=== PATIENT | male | born 1965 | race Caucasian/White ===

== ENCOUNTER 2017-04-12 19:12 | Inpatient (IN) | payer MEDICARE ==
--- NOTE | ~2017-04-12 | NM69 ---
[facility] A Service of [facility] RADIOLOGY TEXT RESULTS PATIENT: JC JIMÉNEZ LOCATION: [facility] 339- : 64 UNIT #: [id number] AGE: [address]: Sapphire Cid MD SEX: M ORDER DR: [id number] [facility] [address]. [place], [place] [address] [id number] I MR#: [id number] Acc #: [id number] NAME: JC JIMÉNEZ : 1965 SEX: M STUDY DATE/TIME: 04/13/2017 9:26 UNIT: A U ROOM: [facility] STUDY DESCRIPTION: NM Pulm Vent and Perf Attending Physician: Yelitza Lopez M.D. Ordering Physician: Erlinda Sol M.D. Primary Care Physician: Dontrell Trejo M.D. MEDICAL IMAGING REPORT This report is preliminary unless electronic signature is present EXAM Ventilation-perfusion lung scan HISTORY 51-year-old male with a history of blood clots with bilateral leg and feet swelling. Shortness of air starting about a month ago. Dizziness and fatigue. Recent total reconstruction right pelvis. COMPARISON Portable chest, 04/12/[address] angiogram chest 04/12/2017. FINDINGS Ventilation-perfusion lung scan was performed utilizing eight standard projections. Perfusion agent 5 mCi technetium 99m MAA and the ventilation agent 36 mCi technetium 99m DTPA aerosol. Examination demonstrates normal ventilation-perfusion throughout all bronchopulmonary segments. No ventilation-perfusion mismatch is seen. Symmetric perfusion between the upper and lower lobes and right and left lungs. IMPRESSION Normal ventilation-perfusion lung scan. Dictated by... Andrzej Wild M.D. THIS IS AN ELECTRONICALLY VERIFIED REPORT Andrzej Wild M.D. at 04/17/2017 9:29 AM Caesar TD: 04/13/2017 13:30 [facility] A Service of [facility] RADIOLOGY TEXT RESULTS PATIENT: JC JIMÉNEZ LOCATION: [facility] 339-01 : 64 UNIT #: [id number] AGE: [address]: Sapphire Cid MD SEX: M ORDER DR: JOB #: [id number] MEDICAL IMAGING REPORT Page 1 of 1 COPY
--- NOTE | ~2017-04-12 | CR72 ---
[facility]. [facility] A Service of [facility] & [facility] RADIOLOGY TEXT RESULTS PATIENT: JC JIMÉNEZ LOCATION: [place] [address] : 64 UNIT #: [id number] AGE: [address]: Yelitza Lopez MD SEX: M ORDER DR: [id number] [facility] [address] [facility]. [place], [place] [address] [id number] E MR#: [id number] Acc #: [id number] NAME: JC JIMÉNEZ. : 1965 SEX: M STUDY DATE/TIME: 04/12/2017 19:51 UNIT: [employer] ROOM: STUDY DESCRIPTION: CR Chest Single View Portable Attending Physician: Angle Roach M.D. Ordering Physician: Angle Roach M.D. Primary Care Physician: Dontrell Trejo M.D. MEDICAL IMAGING REPORT This report is preliminary unless electronic signature is present EXAM Portable chest HISTORY Chest pain and shortness of air for 2 weeks. FINDINGS Cardiac size and pulmonary vascularity are normal. 1 cm calcified granuloma in the left superior upper lobe. No airspace infiltrates. No pleural effusions. IMPRESSION No acute findings. No active disease. Dictated by... Hiren Meneses M.D. THIS IS AN ELECTRONICALLY VERIFIED REPORT Hiren Meneses M.D. at 04/13/2017 11:24 PM DFL/psc TD: 04/12/2017 22:58 JOB #: [id number] MEDICAL IMAGING REPORT Page 1 of 1 COPY
--- NOTE | ~2017-04-12 | CO ---
Unit #: [id number] #: [id number] Patient: JC JIMÉNEZ [id number] [address] [address] [id number] I MR#: [id number] NAME: JC JIMÉNEZ. ROOM: 339 Age: 51 Sex: M Admission Date: 04/13/2017 : 1965 Attending Physician: Sapphire Cid M.D. Primary Care Physician: Dontrell Trejo M.D. Consultation Date: 04/13/2017 CONSULTATION REPORT CHIEF COMPLAINT Fever, possible sepsis, evaluate right hip for possible source. HISTORY OF PRESENT ILLNESS Mr. Jiménez is a 51-year-old gentleman who is status post a recent complex right total hip replacement performed at the [facility] in [place]. 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 He has undergone radiation therapy. He has now undergone reconstruction with, what appears to be, a custom triflange-type component with augments. He states that he was doing well until yesterday. He has had no pain in his right hip. He is in his hip abduction brace. He awoke with shaking and tremulousness. He was brought by family to the emergency department where he followed to have a temperature apparently of 102 approximately. In the emergency department he also felt short of breath. Workup has been performed with an ultrasound of the bilateral lower extremities, VQ scan, CT chest per PE protocol, as well as cardiac enzymes, among others. He states that his right hip feels fine. He denies any erythema or drainage from the right hip. PAST MEDICAL HISTORY 1. 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 2. Hypertension. 3. Hyperlipidemia. 4. Gout. 5. Coronary artery disease. PAST SURGICAL HISTORY 1. Recent right complex total hip replacement with pelvic reconstruction. 2. Appendectomy. 3. Right elbow surgery. HOME MEDICATIONS Tylenol, Norvasc, aspirin, fenofibrate, Indocin, Lidoderm patch, Metoprolol, oxycodone, Prilosec, Senna. ALLERGIES Penicillin. SOCIAL HISTORY The patient lives alone. He has no current tobacco use but is a former Unit #: [id number] #: [id number] Patient: JC JIMÉNEZ Veronica smoker. There is no alcohol use. He is not working. FAMILY HISTORY Noncontributory to the current illness. REVIEW OF SYSTEMS Ten systems are reviewed and negative except as noted in the HPI. PHYSICAL EXAMINATION GENERAL APPEARANCE: Healthy-appearing, rwm-jamooqunxfw-dklxaampz gentleman in no distress or discomfort. PSYCHIATRIC: Awake, alert and oriented to person, place, time and situation with normal range of affect. CARDIAC: Regular rate and rhythm. PULMONARY: No increased work of breathing. Symmetric chest rise. ABDOMEN: Nondistended. NEUROLOGIC: Intact motor and sensory function throughout. No focal deficits in the right lower extremity. SKIN: No overlying erythema. The right hip incision is well healed with no drainage. MUSCULOSKELETAL: Again, his right hip is examined. He is in a hip abduction brace. This is removed, and the incision is clean and dry. Range of motion of the hip is deferred. He has full range of motion at the ankle with normal neurologic function. LYMPHATICS: No lymphedema or lymphadenopathy. DIAGNOSTIC STUDIES LABORATORY STUDIES: Cardiac enzymes are negative. INR is 1.0. Hemoglobin is 9.6, white blood cell count elevated at 16. Blood cultures are pending. Urine culture is pending. DIAGNOSTIC IMAGING: Plain film radiographs are reviewed from the outside facility with limited visibility on a cell phone image obtained from the patient's family. This demonstrates a complex right hip reconstruction with a total hip arthroplasty utilizing a triflange-type custom component with, what appears to be, additional augments. VQ scan and CT scan and ultrasound of the bilateral lower extremities are all negative with no evidence of DVT or PE. IMPRESSION Status post complex right total hip arthroplasty with acetabular reconstruction with low suspicion for any postoperative wound infection. PLAN His right hip appears benign both by physical exam and by history. He has no hip pain and no drainage. There is no evidence of any infection. At this point, it does not seem that his hip is likely source for his fever or elevated white blood cell count. We will obtain standard plain film radiographs of the pelvis and follow up. We will continue to follow the patient through his hospital course. Thank you for the consult. Dictated by... Unit #: [id number] #: [id number] Patient: TINOJC Simpson M.D. ELIZABETH/yee TD: 04/16/2017 13:05 JOB #: [id number] CONSULTATION REPORT Page 1 of 1 X Crow Simpson MD CONSULTATION REPORT
--- NOTE | ~2017-04-12 | HP ---
Unit #: [id number] #: [id number] Patient: JC JIMÉNEZ [id number] [address] [place], [place] [address] [id number] I MR#: [id number] NAME: JC JIMÉNEZ. ROOM: 339 Age: 51 Sex: M Admission Date: 04/13/2017 : 1965 Attending Physician: Erlinda Sol M.D. Primary Care Physician: Dontrell Trejo M.D. HISTORY AND PHYSICAL CHIEF COMPLAINT Rigors, dyspnea. HISTORY This pleasant 51-year-old male, status post recent extensive right hip replacement, following XRT for reported plasmocytoma right hip, with history of nonobstructive CAD and hypertension, is admitted for complaints of chills, fever, and dyspnea. Patient was diagnosed with plasmocytoma of the right hip late 2014 and received 16 radiation treatments, will obtain records. He went to [facility] and underwent an extensive right hip replacement, along with pelvic bone reconstructive surgery, was released last week. Was in his usual state of health until yesterday when he developed shaking chills, temperature 102 degrees, felt somewhat short of breath, his toes were somewhat cyanotic according to family. Denies short throat, cough, diarrhea, or urinary symptoms. The pain in his right hip and leg is no worse than usual. He presented to this emergency department late last evening with a temperature of 99.2, tachycardic with an O2 saturation of 94%. A CTA was performed but was somewhat suboptimal, no gross PE with clear lungs. The patient was bolused with a liter of saline, given Zofran, pain medicines and ultimately a dose of Lovenox pending V/Q scan of the chest. Patient had some questionable chest discomfort when he was short of breath. Right hip and pelvic incision looks to be clean and dry. PAST MEDICAL HISTORY 1. Plasmocytoma right hip requiring XRT and extensive right hip and pelvic reconstructive surgery recently. 2. Essential hypertension. 3. Hyperlipidemia. 4. Gout. 5. Patient states he has nonobstructive coronary artery disease with a 65% lesion in one artery and 50% lesion in the other artery. 6. Appendectomy. 7. Right elbow surgery. ALLERGIES Penicillin resulting in a rash. HOME MEDICATIONS Tylenol as needed; Norvasc 5 mg q.h.s.; aspirin 325 mg b.i.d.; fenofibrate 145 mg daily; Indocin 50 mg t.i.d.; Lidoderm patch; metoprolol ER 25 mg q.h.s.; oxycodone 10 mg 1 to 2 tablets q.3 hours as needed; Prilosec 20 mg Unit #: [id number] #: [id number] Patient: JC JIMÉNEZ daily; Senna tablets b.i.d. FAMILY HISTORY CAD. SOCIAL HISTORY The patient lives alone. He stopped smoking around [facility], does not drink alcohol any longer. REVIEW OF SYSTEMS Notable for chills and shortness of breath. Bone cancer, appendectomy, hypertension, nonobstructive coronary artery disease, hyperlipidemia, above mentioned surgeries. Other systems were reviewed and are otherwise negative. PHYSICAL EXAMINATION GENERAL: Uncomfortable appearing 51-year-old male. VITAL SIGNS: Temperature 99.2, pulse 122 initially current heart rate is 88, O2 saturation is 94% on 2 L of oxygen, respirations 22, blood pressure 137/75. Current blood pressure is 103/70. HEENT: Eyes - PERRLA. Extraocular muscles are intact. Pharynx is benign. NECK: Supple without adenopathy or thyromegaly. CHEST: Clear. CARDIAC: Normal S1 and S2 without murmur. ABDOMEN: Bowel sounds are present. No hepatosplenomegaly, tenderness or masses. EXTREMITIES: Notable for edema of the right leg. Incision over the right hip and right pelvic area is clean and dry. No splinter hemorrhages noted over the fingernail beds. NEUROLOGIC: Patient is awake, alert, and oriented. Cranial nerves are intact. Equal strength throughout. DIAGNOSTIC STUDIES LABORATORY STUDIES: Hematocrit is 30.5, white blood count 12.7, platelet count is 518. Cardiac markers x2 negative. Coags are normal. SMA 12 - glucose is 114, albumin is 3.4, alk phos 105, BNP alcohol levels are negligible. IMAGING STUDIES: Chest x-ray - no acute disease. CTA of the chest suboptimal bolus but no gross PE. Fatty liver, old granulomatous disease. CARDIOLOGY STUDIES: EKG - sinus tachycardia, rate 120, some nonspecific ST wave abnormalities. Poor R wave progression. ASSESSMENT 1. Complaints of chills and fever. Patient felt dyspneic, etiology at this point of time is not certain. 2. Low O2 sats. 3. Recent extensive right hip replacement and pelvic reconstructive surgery following XRT for plasmocytoma at the [facility]. Patient was released last week. 4. Nonobstructive CAD. 5. Gout. 6. Hypertension. 7. Hyperlipidemia. PLANS 1. Blood cultures, urinalysis, empiric antibiotics to include vancomycin Unit #: [id number] #: [id number] Patient: JC JIMÉNEZ and cefepime. Check procalcitonin level in the morning. 2. Patient received one dose of Lovenox pending V/Q scan. Will repeat cardiac enzymes and EKG in the morning as well. 3. Hold Norvasc. 4. IV fluids. 5. Obtain old records. 6. Consultants depending on above. Dictated by Erlinda Sol M.D. AML/ts TD: 04/13/2017 05:02 JOB #: [id number] HISTORY AND PHYSICAL Page 1 of 1 X Erlinda Sol MD X HISTORY AND PHYSICAL
--- NOTE | ~2017-04-12 | CR206 ---
[facility] A Service of [facility] & [facility] RADIOLOGY TEXT RESULTS PATIENT: JC JIMÉNEZ LOCATION: [facility] 339-01 : 64 UNIT #: [id number] AGE: [address]: Sapphire Cid MD SEX: M ORDER DR: [id number] [facility] [address] [place], [place] [address] [id number] I MR#: [id number] Acc #: [id number] NAME: JC JIMÉNEZ. : 1965 SEX: M STUDY DATE/TIME: 04/13/2017 21:58 [facility]: [facility] STUDY DESCRIPTION: CR Pelvis 1 or 2 Views Attending Physician: Sapphire Cid M.D. Ordering Physician: Ed Valdez Martinez M.D. Primary Care Physician: Dontrell Trejo M.D. MEDICAL IMAGING REPORT This report is preliminary unless electronic signature is present EXAM AP pelvis. HISTORY Postop hip pain. FINDINGS Right hip prosthesis with reinforced acetabular component extending into the previously noted expansile and lobulated lesion occupying the right acetabulum with associated ground-glass density. The lesion extends into the right superior and inferior pubic rami and ischial tuberosity and pubic bone. The overall size of this right pelvic lesion is similar to 08/24/2015. The hip prosthetic components are in satisfactory position. No fracture. Dictated by... Hiren Meneses M.D. THIS IS AN ELECTRONICALLY VERIFIED REPORT Hiren Meneses M.D. at 04/14/2017 2:49 PM DFL/el TD: 04/14/2017 13:37 JOB #: [id number] MEDICAL IMAGING REPORT Page 1 of 1 COPY
--- NOTE | ~2017-04-12 | EKG ---
PATIENT: JC JIMÉNEZ UNIT #: [id number] Ventricular Rate: 102 BPM Atrial Rate: 102 BPM P-R Interval: 162 ms QRS Duration: 80 ms Q-T Interval: 404 ms QTC Calculation(Bezet): 526 ms P [place]: 53 degrees Calculated R [place]: 17 degrees Calculated T [place]: 77 degrees Diagnosis Line: Sinus tachycardia Diagnosis Line: Otherwise normal ECG Diagnosis Line: When compared with ECG of 12-APR-2017 19:20, Diagnosis Line: (unconfirmed) Diagnosis Line: Criteria for Anterior infarct are no longer Diagnosis Line: Present Diagnosis Line: T wave amplitude has decreased in Lateral leads Diagnosis Line: Confirmed by JAMESON TRAN MD ([id number]) on Diagnosis Line: 04/13/2017 8:02:57 AM INTERPRETING MD: MARC BROWN
--- NOTE | ~2017-04-12 | EKG ---
PATIENT: JC JIMÉNEZ UNIT #: [id number] Ventricular Rate: 120 BPM Atrial Rate: 120 BPM P-R Interval: 142 ms QRS Duration: 74 ms Q-T Interval: 350 ms QTC Calculation(Bezet): 494 ms P [place]: 58 degrees Calculated R [place]: 1 degrees Calculated T [place]: 61 degrees Diagnosis Line: Sinus tachycardia Diagnosis Line: Possible Inferior infarct , age undetermined Diagnosis Line: Anterior infarct , age undetermined Diagnosis Line: Abnormal ECG Diagnosis Line: No previous ECGs available Diagnosis Line: Confirmed by JAMESON TRAN MD ([id number]) on Diagnosis Line: 04/13/2017 8:02:19 AM INTERPRETING MD: MARC BROWN
--- NOTE | ~2017-04-12 | CT16 ---
[facility] A Service of [facility] & [facility] RADIOLOGY TEXT RESULTS PATIENT: JC JIMÉNEZ LOCATION: [facility] 339- : 64 UNIT #: [id number] AGE: [address]: Yelitza Lopez MD SEX: M ORDER DR: [id number] [facility] [address]. [place], [place] [address] [id number] I MR#: [id number] Acc #: [id number] NAME: JC JIMÉNEZ. : 1965 SEX: M STUDY DATE/TIME: 04/12/2017 21:08 UNIT: CEDOF ROOM: [address] STUDY DESCRIPTION: CT Angio Chest for PE Attending Physician: Erlinda Sol M.D. Ordering Physician: Angle Roach M.D. Primary Care Physician: Dontrell Trejo M.D. MEDICAL IMAGING REPORT This report is preliminary unless electronic signature is present EXAM CT angiography of the chest, PE protocol with contrast, 04/12/2017 INDICATIONS 51-year-old male complaining of shortness of air and chest pain that began today. TECHNIQUE Contrast-enhanced CT of the chest was performed utilizing a PE protocol with 3-D reformats. This CT exam was performed with one or more of the following radiation dose reduction techniques: Automatic exposure control, adjustment of mA and/or kV according to patient size, and iterative reconstruction. COMPARISON 08/19/[address] CHEST: IV bolus suboptimal. A significant portion of the IV bolus is within the systemic arterial system. The aorta demonstrates no aneurysm or dissection. There is no evidence of acute pulmonary embolus in the main, left or right central pulmonary arteries. Beyond the distal first-order branches, sensitivity for detection of PE is degraded by bolus timing and the presence or absence of peripheral filling defects cannot be ascertained. Included thyroid unremarkable. No pericardial effusion. Probable reactive mediastinal nodes and hilar nodes, given similarity to the prior 2009 study. Additional probable reactive axillary nodes. Included upper abdomen demonstrates fatty infiltration of the liver. Lungs demonstrate old, healed granulomatous disease, no effusion. No evidence of pneumonia. Densely calcified granuloma in the upper lobe on the left. No suspicious bone lesion. [facility] A Service of [facility] & [facility] RADIOLOGY TEXT RESULTS PATIENT: JC JIMÉNEZ LOCATION: A 339-01 : 63 UNIT #: [id number] AGE: [address]: Yelitza Lopez MD SEX: M ORDER DR: IMPRESSION 1. Suboptimal bolus timing. No evidence of acute pulmonary embolus in the main, left or right central pulmonary arteries. Beyond the first-order branches, presence or absence of PE cannot be ascertained. 2. No aortic aneurysm or dissection. 3. Lungs are clear. There is old, healed granulomatous disease. 4. Upper abdomen demonstrates fatty infiltration of the liver but no acute finding. Dictated by... Jaime Arreguin M.D. THIS IS AN ELECTRONICALLY VERIFIED REPORT Jaime Arreguin M.D. at 04/13/2017 10:33 AM Leopoldo TD: 04/13/2017 01:32 JOB #: [id number] MEDICAL IMAGING REPORT Page 1 of 1 COPY
--- NOTE | ~2017-04-12 | DS ---
Unit #: [id number] #: [id number] Patient: JC JIMÉNEZ [id number] [address] [address] [id number] I MR#: [id number] NAME: JC JIMÉNEZ. ROOM: 339 Age: 51 Sex: M Admission Date: 04/13/2017 : 1965 Discharge Date: 04/16/2017 Attending Physician: Sapphire Cid M.D. Primary Care Physician: Dontrell Trejo M.D. DISCHARGE SUMMARY JOB NOTE: ADDENDUM ADDENDUM HOSPITAL COURSE After discussion yesterday with Dr. Lee given the patient's elevated procalcitonin upon presentation it was decided that we discontinue antibiotics and recheck procalcitonin and monitor the patient overnight. The patient remained afebrile and has very minimal muscle ache at this time. His weakness has completely resolved. Procalcitonin is down from 23 to 5.7. We are going to discharge home and will not include any Tamiflu given the patient's symptoms are recovering spontaneously. DISCHARGE MEDICATIONS As previously dictated yesterday as his followup. Dictated by... Sapphire Cid M.D. LUCIANO/soledad TD: 04/17/2017 23:52 JOB #: [id number] DISCHARGE SUMMARY Page 1 of 1 X Sapphire Cid MD DISCHARGE SUMMARY
--- NOTE | ~2017-04-12 | US84 ---
[id number] [facility] [address] [place], [place] [address] [id number] I MR#: [id number] Acc #: [id number] NAME: JC JIMÉNEZ : 1965 SEX: M STUDY DATE/TIME: 04/13/2017 10:16 UNIT: C3A PCU ROOM: 339 STUDY DESCRIPTION: US LE Veins Complete Kendrick Stdy Attending Physician: Yelitza Lopez M.D. Ordering Physician: Erlinda Sol M.D. Primary Care Physician: Dontrell Trejo M.D. MEDICAL IMAGING REPORT This report is preliminary unless electronic signature is present EXAM Bilateral lower extremity venous duplex, 04/13/2017 HISTORY Bilateral lower extremity pain and edema for 4 years. Evaluate for deep vein thrombosis. TECHNIQUE Venous ultrasound examination of both lower extremities was performed using grayscale, spectral Doppler and color flow Doppler imaging. FINDINGS The examination is negative. There is no evidence of deep venous thrombus from the groin to the lower calf bilaterally. Visualized greater saphenous veins are also patent. IMPRESSION Negative examination. No evidence of bilateral lower extremity deep venous thrombosis. Dictated by... Crow Zuñiga M.D. THIS IS AN ELECTRONICALLY VERIFIED REPORT Crow Zuñiga M.D. at 04/13/2017 5:35 PM YAW/justin TD: 04/13/2017 13:06 JOB #: [id number] MEDICAL IMAGING REPORT Page 1 of 1 COPY
--- NOTE | ~2017-04-12 | DS ---
Unit #: [id number] #: [id number] Patient: JC JIMÉNEZ [id number] [address] [address] [id number] MR#: [id number] NAME: JC JIMÉNEZ. ROOM: 339 Age: 51 Sex: M Admission Date: 04/13/2017 : 1965 Discharge Date: 04/16/2017 Attending Physician: Sapphire Cid M.D. Primary Care Physician: Dontrell Trejo M.D. DISCHARGE SUMMARY PRIMARY CARE PHYSICIAN Dr. Trejo. PRINCIPAL DIAGNOSES 1. Sepsis secondary to acute influenza A. 2. Acute influenza A. 3. Mild acute respiratory failure secondary to influenza, now resolved. 4. 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 5. Normocytic anemia. Discharge hemoglobin 7.9. 6. Hypertension. 7. Hyperlipidemia. 8. Gastroesophageal reflux disease. 9. Coronary artery disease, nonobstructive. 10. Gout. 11. Obesity. 12. Moderate protein malnutrition. 13. Hepatic steatosis. CONSULTS Dr. Simpson, Orthopedic Surgery; Dr. Lee, Infectious Disease. PROCEDURES 1. X-ray on 04/12/2017 without acute findings. 2. CT angiogram of the chest on 04/12/2017 was negative for PE, though bolus timing with suboptimal. Lungs are clear. Fatty infiltration of liver noted. 3. V/Q lung scan on 04/13/2017, which was low probability. 4. Bilateral lower extremity venous Doppler, which was negative for DVT. 5. X-ray of the pelvis on 04/13/2017 with right hip prosthesis and reinforce the acetabular component. There was no evidence of fracture. CLINICAL HISTORY AND HOSPITAL COURSE Mr. Briseno is a nice 51-year-old, male, who presents to emergency department with a febrile illness after recent hip replacement. Please refer to H and P for further details. The patient was mildly hypoxic and had mildly elevated temperature upon presentation. He also had an elevated white blood cell count of 12.7. He was admitted. Infectious workup was initially negative including CT of the chest, urinalysis, and blood cultures. Temperature remained around 99. The patient is complaining a lot of myalgias and fatigue. He was placed on broad-spectrum cefepime and vancomycin given his recent hospitalization, Unit #: [id number] #: [id number] Patient: JC JIMÉNEZ but again cultures have all been negative. Influenza swab was done and the patient was found to be positive for influenza A approximately 3 to 4 days after the initiation of symptoms. At this point, I am awaiting Infectious Disease's input, but I doubt that there is any joint infection and I suspect influenza A responsible for a lot of his nonspecific myalgias and fever. We will initiate Tamiflu if Infectious Disease feels it is beneficial. The patient today feels clinically much improved. Leukocytosis has resolved and again outside of influenza A, no obvious source of infection is noted. I anticipate discharge home later today with the assumption that Infectious Disease agrees with discontinuation of antibiotics as appropriate. DISCHARGE CONDITION Stable. DISCHARGE STATUS Discharged to home. DISCHARGE MEDICATIONS Tylenol 325 mg p.o. q.4 hours p.r.n. for pain or fever; lidocaine patch 5% apply topically every 12 hours, then remove for 12 hours; Norvasc 5 mg daily; metoprolol succinate 25 mg at bedtime; Senokot 8.6 mg b.i.d., fenofibrate 145 mg daily; aspirin 325 mg daily; indomethacin 50 mg p.o. t.i.d. p.r.n. for pain; oxycodone 10 mg 1 to 2 tablets every 3 hours p.r.n. for pain; Prilosec 20 mg daily. DISCHARGE INSTRUCTIONS The patient was instructed to follow a heart healthy diet. He can increase activity as tolerated. FOLLOWUP The patient will follow up with his primary care physician, Dr. Trejo in 1 week. Will follow up with his hip surgeon at [facility] as previously instructed. Dictated by... Sapphire Cid M.D. LUCIANO/soledad TD: 04/17/2017 03:42 JOB #: [id number] DISCHARGE SUMMARY Page 1 of 1 X Sapphire Cid MD DISCHARGE SUMMARY
--- NOTE | ~2017-04-12 | CO ---
Unit #: [id number] #: [id number] Patient: JC JIMÉNEZ [id number] [address] [place], [place] [address] [id number] MR#: [id number] NAME: JC JIMÉNEZ. ROOM: 339 Age: 51 Sex: M Admission Date: 04/13/2017 : 1965 Attending Physician: Sapphire Cid M.D. Primary Care Physician: Dontrell Trejo M.D. Consultation Date: 04/14/2017 CONSULTATION REPORT REASON FOR CONSULTATION Fever and chills. 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 Surgery was performed at [facility] about 2 weeks ago. He presented yesterday with what appears to be fevers and chills. His T-max of 102 at home. No fever has been documented in the hospital. There was no hypotension. He does not have any focal symptoms. He was started on vancomycin and cefepime empirically. ID was consulted for further evaluation. The patient has been seen by Orthopedic Service, who has not seen anything wrong with the surgical site or with the prosthesis. The patient does not have any dysuria, cough, chest pain, sputum production, or mental status changes, although, he told me he had a "spell" in the ER, but he is not very specific about this. At the present time, he is quiet awake, and alert. Does not have any fever or chills and does not have any focal symptoms at this time. Epidemiologic history was negative other than the recent surgery at [facility]. PAST MEDICAL HISTORY Plasmocytoma, right hip, requiring radiation and extensive right hip surgery and implant; history of essential hypertension; hyperlipidemia; gout; coronary artery disease; appendectomy; right elbow surgery. ALLERGIES Penicillin, which causes the rash. HOME MEDICATIONS Tylenol, Norvasc, aspirin, fenofibrate, indomethacin, Lidoderm patch, metoprolol, oxycodone, senna. CURRENT MEDICATIONS In the hospital, fenofibrate, Protonix, Flomax, Senokot, Lovenox, Tylenol, Zofran, indomethacin, aspirin, Protonix, oxycodone, Lidoderm, metoprolol. He is also on Maxipime and vancomycin. FAMILY HISTORY Positive for coronary artery disease. SOCIAL HISTORY Lives by himself. He quit smoking a few months ago. No history of alcohol or drug use at this time. Unit #: [id number] #: [id number] Patient: JC JIMÉNEZ SYSTEMIC REVIEW Chills and fever. No other symptoms on detailed symptotic enquiries. Specifically, denies any headaches, sore throat, skin rash, chest pain, abdominal pain, nausea, vomiting, and diarrhea. PHYSICAL EXAMINATION GENERAL: A well-developed young white male, who is awake and alert, in no acute distress. He is fully conscious and oriented to time, place, and person. Oral hygiene is poor. VITAL SIGNS: His temperature currently is 98.1 and T-max during this admission had been 99.2. He reportedly had a temperature of 102 at home. His heart rate is 92, blood pressure 114/68. Lowest blood pressure was 95/56 yesterday at 1:00 a.m., respiratory rate is 18. NECK: Supple. There is no rash. EXTREMITIES: There is trace edema. LUNGS: Clear to percussion and auscultation. HEART: Sounds are normal. ABDOMEN: Soft and nontender. There is no organomegaly or ascites. Bowel sounds are normal. NEUROLOGIC: Nonfocal. There is surgical dressing on the right hip, which was not removed since it has been examined by orthopedic surgery. DIAGNOSTIC STUDIES LABORATORY RESULTS: Throat swab is negative for group A strep. Blood cultures are negative at 24 hours. Urine culture is pending. His white count on admission was 12.7, hemoglobin 10.1, platelets 518, neutrophils 93%. BMP was unremarkable. Liver function tests were normal. Urinalysis, no evidence of urinary tract infection. Troponin 0.07. DIAGNOSTIC STUDIES: CT angio of chest, no evidence of acute pulmonary embolism in the main left or right central pulmonary arteries. Lungs are clear. Doppler studies of the lower extremities showed negative exam. Lactic acid 1.2. CRP 23. Sed rate more than 120. CPK 120. IMPRESSION Nonspecific fever at home with chills, unknown source without any focal symptoms. Apparently, the prothesis and surgical sites are okay per orthopedic examination, possibility mainly for bacteriemia and/or viral syndrome. The patient does not appear septic or toxic at this time. RECOMMENDATIONS Agree with vancomycin and cefepime pending septic workup. Further recommendations to follow. Dictated by... Nader Sahu/soledad TD: 04/16/2017 06:26 JOB #: [id number] Unit #: [id number] #: [id number] Patient: JC JIMÉNEZ CONSULTATION REPORT Page 1 of 1 X Wu Lee MD X CONSULTATION REPORT
[~2017-04-12 19:12] MED LIST: TOPROL XL
[2017-04-12 19:53] LABS: EOSINOPHIL# 0.1 X10e3 (0-0.7); EOSINOPHIL% 0.8 % (0.0-7.0); HEMATOCRIT 30.5 % (38.0-50.0); HEMOGLOBIN 10.1 gm/dL (13.0-16.0); LYMPHOCYTE# 0.6 X10e3 (1.0-3.5); LYMPHOCYTE% 4.5 % (17.0-45.0); MEAN CELL VOLUME 91.6 FL (83-96); MEAN CORPUSCULAR HEMOGLOBIN 30.3 PG (28-34); MEAN CORPUSCULAR HGB CONC 33.1 g/dL (30-36); MEAN PLATELET VOLUME 8.5 FL (6.5-11.5); MONOCYTE# 0.2 X10e3 (0-1.0); MONOCYTE% 1.5 % (3.0-12.0); NEUTROPHIL# 11.8 X10e3 (1.5-7.1); NEUTROPHIL% 93.2 % (40-75); PLATELET COUNT 518 X10e3 (140-420); RED BLOOD COUNT 3.33 X10e (3.90-5.60); RED CELL DISTRIBUTION WIDTH 13.9 % (11.0-15.5); WHITE BLOOD COUNT 12.7 X10e3 (4.0-10.5)
[2017-04-12 19:55] LABS: DIFF IND NO
[2017-04-12 20:00] LABS: POC - CKMB 2.2 ng/mL (0.0-7.9); POC - TROPONIN 0.06 ng/mL (<=0.05)
[2017-04-12 20:02] LABS: PARTIAL THROMBOPLASTIN TIME 24.3 SECONDS (23.5-31.3); PROTHROMBIN TIME (PATIENT) 11.3 SECONDS (10.0-11.7)
[2017-04-12 20:12] LABS: ALBUMIN SERUM 3.4 g/dL (3.5-5.0); ALKALINE PHOSPHATASE 105 U/L (32-92); ALT (SGPT) 29 U/L (10-40); AST (SGOT) 36 U/L (10-42); BILIRUBIN, DIRECT 0.2 mg/dL (0.0-0.2); BILIRUBIN,INDIRECT 0.4 mg/dL (0.0-0.9); BILIRUBIN,TOTAL 0.6 mg/dL (0.2-2.0); BLOOD UREA NITROGEN 16 mg/dL (9-23); BUN/CREATININE RATIO 13.33; CALCIUM SERUM 8.5 mg/dL (8.4-10.2); CARBON DIOXIDE 25 mmol/L (22-31); CHLORIDE 102 mmol/L (100-111); CREATININE SERUM 1.2 mg/dL (0.6-1.4); GLOM FILT RATE Estimated 69.1 mL/min (>60); GLUCOSE FASTING 114 mg/dL (70-110); MAGNESIUM 1.7 mg/dL (1.6-3.0); POTASSIUM 4.5 mmol/L (3.5-5.1); PROTEIN TOTAL SERUM 7.1 g/dL (6.0-8.3); SODIUM 135 mmol/L (135-145)
[2017-04-12 20:18] LABS: ALCOHOL BLOOD <5 mg/dL ([, 0])
[2017-04-12 22:46] LABS: POC - TROPONIN <0.05 ng/mL (<=0.05)
[2017-04-13] MEDS ORDERED: ACETAMINOPHEN PO (00:15)
[2017-04-13] MEDS ORDERED: ASPIRIN ENTERI325 M1 PO (00:15)
[2017-04-13] MEDS ORDERED: AMLODIPINE BESYL5 MG PO (00:15)
[2017-04-13] MEDS ORDERED: INDOMETHACIN50 MG PO (00:16)
[2017-04-13] MEDS ORDERED: FENOFIBRATE145 M1 PO (00:16)
[2017-04-13] MEDS ORDERED: LIDODERM1 EACH TD (00:18)
[2017-04-13] MEDS ORDERED: METOPROLOL SUCC25 MG PO (00:18)
[2017-04-13] MEDS ORDERED: OXYCODONE HCL10 MG PO (00:19)
[2017-04-13] MEDS ORDERED: SENNA8.6 M1 PO (00:20)
[2017-04-13] MEDS ORDERED: PRILOSEC PO (00:20)
[2017-04-13 01:18] LABS: URINE SOURCE CLEAN CATCH
[2017-04-13 01:22] LABS: URINE APPEARANCE CLEAR; URINE BILIRUBIN NEG (NEG); URINE BLOOD NEG (NEG); URINE COLOR YELLOW; URINE GLUCOSE NEG (NEG); URINE KETONE NEG (NEG); URINE LEUKOCYTE ESTERASE NEG (NEG); URINE NITRATE NEG (NEG); URINE PROTEIN NEG (NEG); URINE SPECIFIC GRAVITY 1.014 (1.003-1.035)
[2017-04-13 01:29] LABS: CULTURE INDICATED? NO
[2017-04-13 05:22] LABS: HEMATOCRIT 29.3 % (38.0-50.0); HEMOGLOBIN 9.6 gm/dL (13.0-16.0); MEAN CELL VOLUME 91.9 FL (83-96); MEAN CORPUSCULAR HEMOGLOBIN 30.1 PG (28-34); MEAN CORPUSCULAR HGB CONC 32.7 g/dL (30-36); MEAN PLATELET VOLUME 8.3 FL (6.5-11.5); RED BLOOD COUNT 3.18 X10e (3.90-5.60)
[2017-04-13 06:15] LABS: BUN/CREATININE RATIO 13.63; CALCIUM SERUM 8.1 mg/dL (8.4-10.2); CREATININE SERUM 1.1 mg/dL (0.6-1.4); GLOM FILT RATE Estimated 76.8 mL/min (>60); POTASSIUM 4.3 mmol/L (3.5-5.1)
[2017-04-13 06:23] LABS: MB 2.5 ng/ml
[2017-04-13 06:31] LABS: PROCALCITONIN 23.95 NG/ML
[2017-04-14 06:09] LABS: ALBUMIN SERUM 2.7 g/dL (3.5-5.0); BILIRUBIN,TOTAL 0.7 mg/dL (0.2-2.0); BUN/CREATININE RATIO 12.22; CALCIUM SERUM 7.6 mg/dL (8.4-10.2); CREATININE SERUM 0.9 mg/dL (0.6-1.4); GLOM FILT RATE Estimated 97.9 mL/min (>60); POTASSIUM 3.8 mmol/L (3.5-5.1); PROTEIN TOTAL SERUM 5.9 g/dL (6.0-8.3)
[2017-04-14 08:20] LABS: HEMATOCRIT 24.5 % (38.0-50.0); HEMOGLOBIN 8.1 gm/dL (13.0-16.0); MEAN CELL VOLUME 91.9 FL (83-96); MEAN CORPUSCULAR HEMOGLOBIN 30.4 PG (28-34); MEAN CORPUSCULAR HGB CONC 33.1 g/dL (30-36); MEAN PLATELET VOLUME 8.5 FL (6.5-11.5); RED BLOOD COUNT 2.67 X10e (3.90-5.60); WHITE BLOOD COUNT 11.7 X10e3 (4.0-10.5)
[2017-04-14 14:49] LABS: INFLUENZA A POS (NEG); INFLUENZA B NEG (NEG)
[2017-04-15 06:27] LABS: HEMATOCRIT 24.1 % (38.0-50.0); HEMOGLOBIN 7.9 gm/dL (13.0-16.0); MEAN CELL VOLUME 92.1 FL (83-96); MEAN CORPUSCULAR HEMOGLOBIN 30.1 PG (28-34); MEAN CORPUSCULAR HGB CONC 32.7 g/dL (30-36); MEAN PLATELET VOLUME 8.3 FL (6.5-11.5); RED BLOOD COUNT 2.62 X10e (3.90-5.60); RED CELL DISTRIBUTION WIDTH 13.9 % (11.0-15.5); WHITE BLOOD COUNT 7.2 X10e3 (4.0-10.5)
[2017-04-15 07:01] LABS: BUN/CREATININE RATIO 12.22; CREATININE SERUM 0.9 mg/dL (0.6-1.4); GLOM FILT RATE Estimated 97.9 mL/min (>60); POTASSIUM 4.8 mmol/L (3.5-5.1)
[2017-04-16 05:29] LABS: HEMATOCRIT 24.9 % (38.0-50.0); HEMOGLOBIN 8.1 gm/dL (13.0-16.0); MEAN CELL VOLUME 91.3 FL (83-96); MEAN CORPUSCULAR HEMOGLOBIN 29.8 PG (28-34); MEAN CORPUSCULAR HGB CONC 32.6 g/dL (30-36); MEAN PLATELET VOLUME 9.1 FL (6.5-11.5); RED BLOOD COUNT 2.72 X10e (3.90-5.60); RED CELL DISTRIBUTION WIDTH 13.9 % (11.0-15.5); WHITE BLOOD COUNT 6.7 X10e3 (4.0-10.5)
== END 2017-04-16 13:16 | disposition home or self-care (01) | DRG 871 ==
LOC: CED 19:12 → CEDOF 04-13 00:11 → CED 04-13 00:11 → C3A PCU 04-13 00:11 → CEDOF 04-13 00:20 → C3A PCU 04-13 00:20 → CEDOF 04-13 02:10 → C3A PCU 04-13 09:03
PROVIDERS: Internal Medicine; Student in an Organized Health Care Education/Training Program
PROC: B32TYZZ Computerized Tomography (CT Scan) of Left Pulmonary Artery using Other Contrast (ICD-10-PCS; principal; 2017-04-13)
PROC: B32SYZZ Computerized Tomography (CT Scan) of Right Pulmonary Artery using Other Contrast (ICD-10-PCS; 2017-04-13)
DX: A41.9 Sepsis, unspecified organism (principal); J96.00 Acute respiratory failure, unspecified whether with hypoxia or hypercapnia; E44.0 Moderate protein-calorie malnutrition; J10.1 Influenza due to other identified influenza virus with other respiratory manifestations; D64.9 Anemia, unspecified; Z96.641 Presence of right artificial hip joint; I10 Essential (primary) hypertension; E78.5 Hyperlipidemia, unspecified; K21.9 Gastro-esophageal reflux disease without esophagitis; I25.10 Atherosclerotic heart disease of native coronary artery without angina pectoris; E66.9 Obesity, unspecified; Z68.34 Body mass index [BMI] 34.0-34.9, adult; K76.0 Fatty (change of) liver, not elsewhere classified; Z88.0 Allergy status to penicillin; Z82.49 Family history of ischemic heart disease and other diseases of the circulatory system
CPT/HCPCS: 36415; 71010; 71275; 72170; 78582; 80048; 80053; 80076; 80202; 81003; 82308; 82550; 82553; 83605; 83735; 83880; 84443; 84484; 85025; 85027; 85610; 85652; 85730; 86140; 87040; 87086; 87651; 87804; 93005; 93970; 94760; 96361; 96374; 96375; 97116; 97162; 97167; 97530; 99285; A9540; A9567; G0480; G8978-GP; G8979-GP; G8987-GO; G8988-GO; J0692; J1170; J1650; J2270; J2405; J3370; Q9967